=== PATIENT | female | born 1955 | race Caucasian/White ===

== ENCOUNTER 2019-10-05 02:53 | Observation (INO) | payer MEDICAID, MEDICARE ==
[~2019-10-05] VITALS: Ht 172.7 cm; Wt 106.8 kg
[2019-10-05] MEDS ORDERED: ASPIRIN 81 MG TABLET CHEW PO ONE (03:30)
[2019-10-05] MEDS ORDERED: ASPIRIN 81 MG TABLET CHEW ONE (03:34)
[2019-10-05 03:40] LABS: BASOPHILS # (AUTO) 0.04 x10^3/uL (0-0.1); BASOPHILS % (AUTO) 0 % (0-1); EOSINOPHILS # (AUTO) 0.14 x10^3/uL (0-0.4); EOSINOPHILS % (AUTO) 1 % (1-7); LYMPHOCYTES # (AUTO) 1.95 x10^3/uL (1-3.4); LYMPHOCYTES % (AUTO) 18 % (22-44); MD NO; MEAN CORPUSCULAR HEMOGLOBIN 31.1 pg (27.0-34.8); MEAN CORPUSCULAR HGB CONC 32.9 g/dL (32.4-35.8); MEAN CORPUSCULAR VOLUME 94.4 fL (80-100); MEAN PLATELET VOLUME 8.9 fL (7.4-10.4); MONOCYTES # (AUTO) 0.69 x10^3/uL (0.2-0.8); MONOCYTES % (AUTO) 6 % (2-9); NEUTROPHILS % (AUTO) 74 % (42-75); PLATELET COUNT 305 x10^3/uL (130-400); RED BLOOD COUNT 4.97 x10^6/uL (3.82-5.3); RED CELL DISTRIBUTION WIDTH 13.5 % (9.6-15.2)
[2019-10-05 03:50] LABS: ALBUMIN 3.8 g/dL (3.4-5.0); ANION GAP 7 mmol/L (5-15); CALCIUM 9.8 mg/dL (8.5-10.1); CHLORIDE 106 mmol/L (98-107); CREATININE 1.01 mg/dL (0.55-1.02)
[2019-10-05 03:53] LABS: TROPONIN I < 0.015 ng/mL (0.000-0.045)
--- NOTE | 2019-10-05 04:44 | NUR ---
Pt to CT via stretcher.
--- NOTE | 2019-10-05 04:54 | NUR ---
Pt returned from CT via stretcher. Pt reconnected to monitor.
[2019-10-05] MEDS ORDERED: OMNIPAQUE 350 MG/ML, 75ML BOTTLE ONE (05:01)
--- NOTE | 2019-10-05 05:36 | NUR ---
Report given to Doreen GANN.
[2019-10-05 05:57] VITALS: BP 122/76
[2019-10-05] MEDS ORDERED: ALLO100T30 PO (06:21)
[2019-10-05] MEDS ORDERED: DULO60CA56 PO (06:21)
[2019-10-05] MEDS ORDERED: HYDR25TA6 PO (06:21)
[2019-10-05] MEDS ORDERED: LISI-167 PO (06:21)
[2019-10-05] MEDS ORDERED: CYCL-259 PO (06:25)
[2019-10-05] MEDS ORDERED: TRAZ-96 PO (06:25)
[2019-10-05] MEDS ORDERED: ONDANSETRON ODT 4 MG PO PRN (06:30)
[2019-10-05] MEDS ORDERED: ONDANSETRON 2MG/ML, 2ML IVPush PRN (06:30)
[2019-10-05] MEDS ORDERED: CYCLOBENZAPRINE 10 MG TABLET PO PRN (06:30)
[2019-10-05] MEDS ORDERED: DOCUSATE 100 MG CAPSULE PO PRN (06:30)
[2019-10-05] MEDS ORDERED: hydrALAzine 20 MG/ML, 1ML IVPush PRN (06:30)
[2019-10-05] MEDS ORDERED: ACETAMINOPHEN 325 MG TABLET PO PRN (06:30)
[2019-10-05] MEDS ORDERED: IBUPROFEN 600 MG TABLET PO PRN (06:30)
[2019-10-05] MEDS ORDERED: LABETALOL 5MG/ML, 20ML IVPush PRN (06:30)
[2019-10-05] MEDS ORDERED: ENALAPRILAT 1.25 MG/ML, 2ML IVPush PRN (06:30)
[2019-10-05] MEDS ORDERED: NITROGLYCERIN 0.4 MG BOTTLE (25 TABS) SL PRN (06:30)
[2019-10-05] MEDS ORDERED: BISACODYL 10 MG SUPP PR PRN (06:30)
[2019-10-05 06:39] VITALS: BP 112/68
[2019-10-05] MEDS: HYDROCHLOROTHIAZIDE 25 MG TABLET PO SCH (09:00)
[2019-10-05] MEDS: ALLOPURINOL 100 MG TABLET PO SCH (09:06)
[2019-10-05] MEDS: FAMOTIDINE 20 MG TABLET PO SCH ×2 (09:06→21:48)
[2019-10-05] MEDS: LISINOPRIL 10 MG TABLET PO SCH (09:07)
[2019-10-05] MEDS: ENOXAPARIN 30 MG/0.3 ML SQ SCH ×2 (10:00→16:25)
[2019-10-05] MEDS ORDERED: REGADENOSON 0.4 MG/5 ML SYRINGE ONE (10:28)
[2019-10-05 10:45] LABS: TROPONIN I < 0.015 ng/mL (0.000-0.045)
[2019-10-05 12:58] VITALS: BP 122/69
[2019-10-05] MEDS ORDERED: POLYETHYLENE GLYCOL 17 GM PACKET PO ONE (15:00)
[2019-10-05 16:41] LABS: TROPONIN I < 0.015 ng/mL (0.000-0.045)
[2019-10-05 16:44] LABS: CHOL/HDL RATIO 2.1; LDL/HDL RATIO 0.8 (0.5-3.0)
[2019-10-05] MEDS ORDERED: ATORVASTATIN 40 MG TABLET PO SCH (21:00)
[2019-10-05 21:40] VITALS: BP 98/65
[2019-10-05] MEDS: ATORVASTATIN 40 MG TABLET PO SCH (21:48)
[2019-10-05] MEDS: DULOXETINE 30 MG CAPSULE.DR PO SCH (21:48)
[2019-10-05] MEDS: TRAZODONE 50MG TABLET PO PRN (22:27)
[2019-10-06 02:38] VITALS: BP 96/67
[2019-10-06] MEDS: ENOXAPARIN 30 MG/0.3 ML SQ SCH ×2 (05:42→18:20)
[2019-10-06 05:53] LABS: BASOPHILS # (AUTO) 0.05 x10^3/uL (0-0.1); BASOPHILS % (AUTO) 1 % (0-1); EOSINOPHILS # (AUTO) 0.13 x10^3/uL (0-0.4); EOSINOPHILS % (AUTO) 2 % (1-7); LYMPHOCYTES # (AUTO) 2.13 x10^3/uL (1-3.4); LYMPHOCYTES % (AUTO) 36 % (22-44); MD NO; MEAN CORPUSCULAR HEMOGLOBIN 31.1 pg (27.0-34.8); MEAN CORPUSCULAR HGB CONC 33.1 g/dL (32.4-35.8); MEAN CORPUSCULAR VOLUME 93.9 fL (80-100); MONOCYTES # (AUTO) 0.73 x10^3/uL (0.2-0.8); MONOCYTES % (AUTO) 12 % (2-9); NEUTROPHILS # (AUTO) 2.95 x10^3/uL (1.8-6.8); NEUTROPHILS % (AUTO) 49 % (42-75); PLATELET COUNT 272 x10^3/uL (130-400); RED BLOOD COUNT 4.46 x10^6/uL (3.82-5.3); RED CELL DISTRIBUTION WIDTH 13.4 % (9.6-15.2)
[2019-10-06 07:15] VITALS: BP 119/68
[2019-10-06 10:39] VITALS: BP 116/76
[2019-10-06] MEDS: ASPIRIN 81 MG TABLET CHEW PO SCH (10:41)
[2019-10-06] MEDS: FAMOTIDINE 20 MG TABLET PO SCH ×2 (10:41→20:21)
[2019-10-06] MEDS: HYDROCHLOROTHIAZIDE 25 MG TABLET PO SCH (10:41)
[2019-10-06] MEDS: ALLOPURINOL 100 MG TABLET PO SCH (10:41)
[2019-10-06] MEDS: LISINOPRIL 10 MG TABLET PO SCH (10:42)
[2019-10-06] MEDS ORDERED: ARTIFICIAL TEARS OINT 3.5 GM EACHEYE PRN (13:30)
[2019-10-06] MEDS ORDERED: LIDODERM 5% PATCH TD ONE (13:30)
[2019-10-06 13:47] VITALS: BP 107/70
[2019-10-06] MEDS: POLYETHYLENE GLYCOL 17 GM PACKET PO PRN (18:20)
[2019-10-06 19:09] VITALS: BP 144/79
[2019-10-06] MEDS: DULOXETINE 30 MG CAPSULE.DR PO SCH (20:21)
[2019-10-06] MEDS: ATORVASTATIN 40 MG TABLET PO SCH (20:21)
[2019-10-06] MEDS: TRAZODONE 50MG TABLET PO PRN (21:13)
[2019-10-07 00:50] VITALS: BP 117/74
[2019-10-07] MEDS: ENOXAPARIN 30 MG/0.3 ML SQ SCH ×2 (05:43→17:48)
[2019-10-07 08:39] VITALS: BP 137/84
[2019-10-07] MEDS: FAMOTIDINE 20 MG TABLET PO SCH ×2 (09:00→21:23)
[2019-10-07] MEDS: ASPIRIN 81 MG TABLET CHEW PO SCH (09:00)
[2019-10-07] MEDS: LISINOPRIL 10 MG TABLET PO SCH (09:00)
[2019-10-07] MEDS: ALLOPURINOL 100 MG TABLET PO SCH (09:00)
[2019-10-07] MEDS: HYDROCHLOROTHIAZIDE 25 MG TABLET PO SCH (09:00)
[2019-10-07 13:05] VITALS: BP 137/110
[2019-10-07 19:31] VITALS: BP 133/83
[2019-10-07] MEDS: POLYETHYLENE GLYCOL 17 GM PACKET PO PRN (21:23)
[2019-10-07] MEDS: ATORVASTATIN 40 MG TABLET PO SCH (21:23)
[2019-10-07] MEDS: DULOXETINE 30 MG CAPSULE.DR PO SCH (21:24)
[2019-10-07] MEDS: TRAZODONE 50MG TABLET PO PRN (22:27)
[2019-10-08] MEDS: ENOXAPARIN 30 MG/0.3 ML SQ SCH (01:26)
[2019-10-08 05:45] VITALS: BP 107/72
[2019-10-08 09:34] VITALS: BP 100/69
[2019-10-08] MEDS: FAMOTIDINE 20 MG TABLET PO SCH (09:36)
[2019-10-08] MEDS: ALLOPURINOL 100 MG TABLET PO SCH (09:36)
[2019-10-08] MEDS: HYDROCHLOROTHIAZIDE 25 MG TABLET PO SCH (09:36)
[2019-10-08] MEDS: ASPIRIN 81 MG TABLET CHEW PO SCH (09:36)
[2019-10-08] MEDS: LISINOPRIL 10 MG TABLET PO SCH (09:36)
[2019-10-08] MEDS ORDERED: SODIUM CHLORIDE 0.9% 1,000 ML IV SCH (11:00)
[2019-10-08 14:19] VITALS: BP 124/69
[2019-10-08] MEDS ORDERED: FENTANYL PF 100 MCG/2ML ONE (15:13)
[2019-10-08] MEDS ORDERED: BIVALIRUDIN 250 MG ONE (15:13)
[2019-10-08] MEDS ORDERED: MIDAZOLAM 1 MG/ML, 5ML ONE (15:13)
[2019-10-08] MEDS ORDERED: HEPARIN 1,000 UNITS/ML, 10ML ONE (15:13)
[2019-10-08] MEDS ORDERED: LIDOCAINE 1%, 20ML ONE (15:14)
[2019-10-08] MEDS ORDERED: VERAPAMIL 2.5 MG/ML, 2ML ONE (15:14)
[2019-10-08] MEDS ORDERED: ATOR40TA78 PO (16:17)
== END 2019-10-08 18:48 | disposition home or self-care (01) ==
LOC: ED 03:43 → EDIP 05:19 → INTOOBSV 05:19 → 5SO 05:46
PROVIDERS: ADMIT Family Medicine; ATTEND Family Medicine
DX: R07.89 Other chest pain (principal); D72.829 Elevated white blood cell count, unspecified; I25.9 Chronic ischemic heart disease, unspecified; R73.03 Prediabetes; G47.33 Obstructive sleep apnea (adult) (pediatric); I10 Essential (primary) hypertension; E78.5 Hyperlipidemia, unspecified; M79.7 Fibromyalgia; K44.9 Diaphragmatic hernia without obstruction or gangrene; R00.0 Tachycardia, unspecified; Z87.442 Personal history of urinary calculi; Z79.899 Other long term (current) drug therapy
CPT/HCPCS: 36415; 71045; 71275; 78452; 80048; 80061; 82040; 83880; 84443; 84484; 85025; 85379; 93005; 93017; 93306; 93458; 96372; 99156; 99285; A9502; C1769; C1894; G0378; J1644; J1650; J2250; J2785; J3010; J3490; Q9967; J0583

== ENCOUNTER 2019-12-20 07:31 | Day surgery (SDC) | payer MEDICARE ==
[~2019-12-20] VITALS: Ht 172.7 cm; Wt 106.6 kg
[~2019-12-20 07:31] MED LIST: ALLO100T30 PO; ATOR40TA78 PO; CYCL-259 PO; DULO60CA56 PO; HYDR25TA6 PO; LISI-167 PO; TRAZ-96 PO
[2019-12-20] MEDS ORDERED: LACTATED RINGERS 1,000 ML IV ONE (09:23)
[2019-12-20] MEDS ORDERED: CHLORHEXIDINE 15 ML UDC MM STA (09:23)
[2019-12-20 09:24] VITALS: BP 126/84
[2019-12-20] MEDS ORDERED: MAGN100T6 PO (09:32)
[2019-12-20] MEDS ORDERED: ZINC50TA10 PO (09:32)
[2019-12-20] MEDS ORDERED: MELA5TAB14 PO (09:32)
[2019-12-20] MEDS ORDERED: TRAMADOL (09:32)
[2019-12-20] MEDS ORDERED: ATOR20TA PO (09:32)
[2019-12-20] MEDS ORDERED: CALC-31 PO (09:32)
[2019-12-20 10:20] LABS: BASOPHILS # (AUTO) 0.06 x10^3/uL (0-0.1); BASOPHILS % (AUTO) 1 % (0-1); EOSINOPHILS # (AUTO) 0.13 x10^3/uL (0-0.4); EOSINOPHILS % (AUTO) 2 % (1-7); LYMPHOCYTES # (AUTO) 1.96 x10^3/uL (1-3.4); LYMPHOCYTES % (AUTO) 32 % (22-44); MD NO; MEAN CORPUSCULAR HEMOGLOBIN 30.9 pg (27.0-34.8); MEAN CORPUSCULAR HGB CONC 32.8 g/dL (32.4-35.8); MEAN PLATELET VOLUME 8.6 fL (7.4-10.4); MONOCYTES % (AUTO) 10 % (2-9); NEUTROPHILS # (AUTO) 3.44 x10^3/uL (1.8-6.8); NEUTROPHILS % (AUTO) 56 % (42-75); PLATELET COUNT 325 x10^3/uL (130-400); RED BLOOD COUNT 4.85 x10^6/uL (3.82-5.3); RED CELL DISTRIBUTION WIDTH 13.6 % (9.6-15.2)
[2019-12-20 10:26] LABS: INTERNATIONAL NORMALIZED RATIO 0.98 (0.93-1.1); PROTHROMBIN TIME 10.1 Seconds (9.6-11.5)
[2019-12-20 10:30] LABS: ALANINE AMINOTRANSFERASE 26 U/L (12-78); ALBUMIN 3.8 g/dL (3.4-5.0); ANION GAP 6 mmol/L (5-15); CALCIUM 9.8 mg/dL (8.5-10.1); CHLORIDE 108 mmol/L (98-107)
[2019-12-20 10:33] LABS: ALKALINE PHOSPHATASE 115 U/L (45-117); BILIRUBIN,TOTAL 0.5 mg/dL (0.2-1.0); TOTAL PROTEIN 8.2 g/dL (6.4-8.2)
[2019-12-20] MEDS ORDERED: FENTANYL PF 250 MCG/5ML ONE (11:30)
[2019-12-20] MEDS ORDERED: MIDAZOLAM 1 MG/ML, 2ML ONE (11:30)
[2019-12-20] MEDS ORDERED: NEOSTIGMINE 1 MG/ML, 10ML ONE (11:31)
[2019-12-20] MEDS ORDERED: ONDANSETRON 2MG/ML, 2ML ONE (11:31)
[2019-12-20] MEDS ORDERED: ROCURONIUM 10MG/ML,5ML ONE (11:31)
[2019-12-20] MEDS ORDERED: GLYCOPYRROLATE 0.2MG/1ML, 5ML ONE (11:31)
[2019-12-20] MEDS ORDERED: CEFAZOLIN 1,000 MG ONE (11:31)
[2019-12-20] MEDS ORDERED: DEXAMETHASONE 4 MG/ML, 1ML ONE (11:31)
[2019-12-20] MEDS ORDERED: PROPOFOL 10 MG/ML, 20ML ONE (11:31)
[2019-12-20] MEDS ORDERED: BUPIVACAINE/PF 0.5% ONE (12:43)
[2019-12-20] MEDS ORDERED: EPINEPHRINE 1 MG/ML, 1ML ONE (12:44)
[2019-12-20] MEDS ORDERED: EPINEPHRINE TOPICAL SOLN 1 MG/ML, 30ML ONE (12:47)
[2019-12-20] MEDS ORDERED: MINERAL OIL 10 ML VIAL MC ONE (12:48)
[2019-12-20] MEDS ORDERED: PHENYLEPHRINE 10 MG/ML ONE (13:19)
[2019-12-20] MEDS ORDERED: PROMETHAZINE 25 MG/ML, 1ML IVPush PRN (13:30)
[2019-12-20] MEDS ORDERED: hydrALAzine 20 MG/ML, 1ML IV PRN (13:30)
[2019-12-20] MEDS ORDERED: LABETALOL 5MG/ML, 20ML IV PRN (13:30)
[2019-12-20] MEDS ORDERED: HALOPERIDOL 5 MG/ML IV PRN (13:30)
[2019-12-20] MEDS ORDERED: OXYcodone 5 MG/5 ML ORAL.SOL UDC PO PRN (13:30)
[2019-12-20] MEDS ORDERED: HYDROmorphone 1 MG/ML, 1ML INJ IVPush PRN (13:30)
[2019-12-20] MEDS ORDERED: ACETAMINOPHEN 325 MG TABLET PO PRN (13:30)
[2019-12-20] MEDS ORDERED: MEPERIDINE/PF 25MG/0.5ML IVPush PRN (13:30)
[2019-12-20] MEDS ORDERED: morphine SULFATE 10 MG/ML, 1ML IVPush PRN (13:30)
[2019-12-20] MEDS ORDERED: BUPIVACAINE/PF-EPI 0.5% 1:200K INFIL ONE (13:44)
[2019-12-20] MEDS: FENTANYL PF 100 MCG/2ML IV PRN ×2 (15:31→15:44)
[2019-12-20] MEDS ORDERED: FENTANYL PF 100 MCG/2ML ONE (15:41)
[2019-12-20] MEDS ORDERED: OXYcodone 5 MG/5 ML ORAL.SOL UDC ONE (15:41)
== END 2019-12-20 17:25 | disposition home or self-care (01) ==
LOC: OUT 07:31 → EDSTATUS 12:00 → OUT 17:25
PROVIDERS: ATTEND Surgery
DX: C43.62 Malignant melanoma of left upper limb, including shoulder (principal); Z20.828 Contact with and (suspected) exposure to other viral communicable diseases; I10 Essential (primary) hypertension; E78.5 Hyperlipidemia, unspecified; M10.9 Gout, unspecified; M19.90 Unspecified osteoarthritis, unspecified site; Z79.01 Long term (current) use of anticoagulants; Z79.891 Long term (current) use of opiate analgesic; Z79.899 Other long term (current) drug therapy; Z90.49 Acquired absence of other specified parts of digestive tract; Z98.890 Other specified postprocedural states; Z98.1 Arthrodesis status; Z98.51 Tubal ligation status; Z90.721 Acquired absence of ovaries, unilateral; Z82.49 Family history of ischemic heart disease and other diseases of the circulatory system; Z82.3 Family history of stroke; Z83.3 Family history of diabetes mellitus; Z80.3 Family history of malignant neoplasm of breast
CPT/HCPCS: 14020; 36415; 38525; 38792; 80053; 85025; 85610; 87635; 88307; A9541; J0171; J0690; J1100; J2250; J2370; J2405; J2704; J2710; J3010; J7120; 88341; 88342

== ENCOUNTER → 2020-02-26 | Outpatient (CLI) | payer MEDICARE ==
[~2020-02-26] MED LIST changes: +ATOR20TA PO; +CALC-31 PO; +MAGN100T6 PO; +MELA5TAB14 PO; +OMNIPAQUE 350 MG/ML, 100ML BOTTLE ONE; +TRAMADOL; +ZINC50TA10 PO
== END | disposition home or self-care (01) ==
LOC: CFH 12:28
PROVIDERS: ATTEND Internal Medicine
DX: C43.62 Malignant melanoma of left upper limb, including shoulder (principal); N20.0 Calculus of kidney; K57.30 Diverticulosis of large intestine without perforation or abscess without bleeding; M51.37 Other intervertebral disc degeneration, lumbosacral region; K80.20 Calculus of gallbladder without cholecystitis without obstruction; J98.4 Other disorders of lung; J84.10 Pulmonary fibrosis, unspecified; K44.9 Diaphragmatic hernia without obstruction or gangrene; R91.1 Solitary pulmonary nodule
CPT/HCPCS: 71260; 74177; 82565; Q9967

== ENCOUNTER → 2020-08-27 | Outpatient (CLI) | payer MEDICARE ==
[~2020-08-27] MED LIST changes: -CYCL-259 PO; +CYCL10TA2 PO
== END | disposition home or self-care (01) ==
LOC: CFH 10:19
PROVIDERS: ATTEND Internal Medicine
DX: C43.62 Malignant melanoma of left upper limb, including shoulder (principal); R91.8 Other nonspecific abnormal finding of lung field; J98.4 Other disorders of lung; J84.10 Pulmonary fibrosis, unspecified; K44.9 Diaphragmatic hernia without obstruction or gangrene; K80.20 Calculus of gallbladder without cholecystitis without obstruction; K57.30 Diverticulosis of large intestine without perforation or abscess without bleeding; N20.0 Calculus of kidney
CPT/HCPCS: 71260; 74177; 82565; Q9967

== ENCOUNTER → 2020-09-19 | Outpatient (CLI) | payer MEDICARE ==
[~2020-09-19] MED LIST changes: -OMNIPAQUE 350 MG/ML, 100ML BOTTLE ONE
== END | disposition home or self-care (01) ==
LOC: CARD 08:38
PROVIDERS: ATTEND Family Medicine Sports Medicine
DX: R20.2 Paresthesia of skin (principal)
CPT/HCPCS: 95886; 95908

== ENCOUNTER → 2020-12-25 | Outpatient (CLI) | payer MEDICARE ==
[~2020-12-25] MED LIST changes: +OMNIPAQUE 350 MG/ML, 100ML BOTTLE ONE
== END | disposition home or self-care (01) ==
LOC: RAD 10:02
PROVIDERS: ATTEND Internal Medicine
DX: C43.62 Malignant melanoma of left upper limb, including shoulder (principal); R91.1 Solitary pulmonary nodule; J84.10 Pulmonary fibrosis, unspecified; K44.9 Diaphragmatic hernia without obstruction or gangrene; I70.8 Atherosclerosis of other arteries; N20.0 Calculus of kidney; Q89.09 Congenital malformations of spleen
CPT/HCPCS: 71260; 74177; Q9967